=== PATIENT | male | born 1950 | race Caucasian/White ===

== ENCOUNTER 2019-05-07 06:33 | Day surgery (SDC) | payer MEDICARE, OTHER ==
[2019-05-07] MEDS ORDERED: Sugammadex Sodium 200 MG/2 ML VIAL IV ONE (06:34)
[2019-05-07] MEDS ORDERED: Succinylcholine 200 MG/10 ML MDV IV ONE (06:34)
[2019-05-07] MEDS ORDERED: Rocuronium 50 MG/5 ML Vial IV ONE (06:34)
[2019-05-07] MEDS ORDERED: Lactated Ringers 1,000 ML IV ONE (06:34)
[2019-05-07] MEDS ORDERED: Ondansetron 4 MG/2 ML SDV IVPUSH ONE ×2 (06:34)
[2019-05-07] MEDS ORDERED: Labetalol 100 MG/20 ML MDV IV ONE (06:34)
[2019-05-07] MEDS ORDERED: fentaNYL 100 MCG/2 ML SDV IV ONE (06:34)
[2019-05-07] MEDS ORDERED: Ketorolac 30 MG/ML SDV IVPUSH ONE (06:34)
[2019-05-07] MEDS ORDERED: Propofol 200 MG/20 ML SDV IV ONE (06:34)
[2019-05-07] MEDS ORDERED: Sodium Chloride 0.9% 10 ML Syringe FLUSH PRN (06:45)
[2019-05-07] MEDS ORDERED: Lactated Ringers 1,000 ML IV SCH (06:45)
[2019-05-07] MEDS ORDERED: ceFAZolin 2 GM in Premix Bag 1 BAG IV ONE (07:30)
[2019-05-07] MEDS ORDERED: Bupivacaine 0.5% 30 ML SDV INJECT ONE (08:15)
[2019-05-07] MEDS ORDERED: Lidocaine 1% with EPINEPHrine 1:100,000 20 ML MDV INJECT ONE (08:15)
[2019-05-07] MEDS ORDERED: Acetaminophen/HYDROcodone 325-5 MG Tab PO PRN (09:20)
--- NOTE | 2019-05-07 09:20 | PCM.OPNOTE ---
- General Post-Op/Procedure Note Date of Surgery/Procedure: 05/07/19 Operative Procedure(s): bilateral lap inguinal hernia repair Findings: indirect hernia bilaterally right side is a recurrence Pre Op Diagnosis: bilateral inguinal hernia without obstruction or gangrene Post-Op Diagnosis: Same Anesthesia Technique: General ET Tube, Local (5 ml 1 % lido with epi/0.5% buvipicaine) Primary Surgeon: Sha Holt Anesthesia Provider: Hazel Bolanos Pathology: none Complications: None Condition: Good Free Text/Narrative:: see dictation
--- NOTE | 2019-05-07 14:03 | OR ---
DATE OF OPERATION: 05/07/2019 SURGEON: Sha Holt MD PROCEDURE PERFORMED: Bilateral laparoscopic inguinal hernia repair. PREOPERATIVE DIAGNOSIS: Bilateral inguinal hernia with the right being a recurrence. POSTOPERATIVE DIAGNOSIS: Bilateral inguinal hernia with the right being a recurrence. INDICATIONS FOR PROCEDURE: This is a 68-year-old white male, who has had a repair in the past of a right inguinal hernia. He was referred with a left inguinal hernia and, on exam, appeared to have a recurrence on the right side as well. Due to the nature of the findings, he was offered and accepted bilateral repair. INTRAOPERATIVE FINDINGS: A total of 10 mL of 1:1 mixture of 1% lidocaine with epinephrine and 0.5% bupivacaine were used. Bard 3DMax mesh polypropylene preformed meshes were used. Both of these were size medium. The right side was reference #[id number], lot #[id number] with an expiration date of 04/13/2022. The left side again was medium, reference #[id number], lot #[id number], expiration date 03/14/2021. Both of these were size 8.5 x 13.7 cm. DESCRIPTION OF PROCEDURE: After an excellent general anesthetic was administered via endotracheal tube, the patient was prepped and draped in the usual sterile manner. Our local mixture was used to infiltrate the area just below the umbilicus. A 3-cm skin incision was made. Blunt dissection was carried out, exposing the anterior rectus sheath. This area was infiltrated with more local, the sheath was divided in approximately 1 cm length horizontally. The rectus muscle was retracted laterally and balloon dilator was inserted in preperitoneal space down to the level of the symphysis pubis and was inflated. After maximal insufflation, the balloon dilator was removed, and the Quinn trocar was inserted. The preperitoneal space was insufflated to 12 mmHg pressure using carbon dioxide. Two 5 mm ports were then placed along the midline between the symphysis pubis and this trocar. Attention was first turned to the right side, which was the area of the recurrence. Blunt dissection was carried out, exposing the spermatic cord as it entered into the internal ring. Careful blunt dissection was carried out to dissect free the hernia sac, identified the vas deferens, as well as the blood vessels to the testicle. There was a small rent made in the peritoneum, which was closed with clips. Having dissected this area free, our attention was then turned to the left side. More careful dissection again was carried out, reducing a larger hernia on the left side by mobilizing the sac and skeletonizing and exposing the vas deferens and left-sided testicle. Similar fashion was performed on the right. The mesh was then rolled and inserted into preperitoneal space starting on the left side. The mesh was played out. Two permanent tackers were used to tack the mesh to Pancho's ligament on the inside with good coverage of the inguinal canal. The process was repeated on the right side with similarly placed tackers, after covering the floor of the inguinal canal in the preperitoneal aspect. After assuring excellent hemostasis, the gas was released and the trocars were removed. The fascial defect was closed with a [id number] 0 Vicryl, subcu 4- 0 Vicryl was used to close the skin. Steri-Strips were applied. Needle, sponge, and instrument counts were reported as correct. The patient was taken to recovery room in good condition. /[id number] /MODL
== END 2019-05-07 11:24 | disposition home or self-care (01) ==
LOC: FB.SDS 06:33
PROVIDERS: ATTEND Surgery
DX: K40.91 Unilateral inguinal hernia, without obstruction or gangrene, recurrent (principal); K40.90 Unilateral inguinal hernia, without obstruction or gangrene, not specified as recurrent; I10 Essential (primary) hypertension; Z79.01 Long term (current) use of anticoagulants; Z79.82 Long term (current) use of aspirin; Z79.899 Other long term (current) drug therapy
CPT/HCPCS: 00830; 49505; 49520; 94150; A9270; C1713; C1781; J0330; J0690; J1885; J2405; J2704; J3010; J3490; J7120

== ENCOUNTER 2019-05-12 20:37 | Observation (INO) | payer MEDICARE, OTHER ==
[2019-05-12] MEDS ORDERED: HYDROmorphone 2 MG/ML SDV IM ONE (20:54)
--- NOTE | 2019-05-12 20:59 | EDM.PDOC ---
ED HPI GENERAL MEDICAL PROBLEM - General Chief Complaint: Abdominal Pain Stated Complaint: PAIN Time Seen by Provider: 05/12/19 20:50 Source of Information: Reports: Patient, Family, Old Records History Limitations: Reports: No Limitations - History of Present Illness INITIAL COMMENTS - FREE TEXT/NARRATIVE: Grge comes back to [facility] with the develop of abdominal pain over the past 5 hours. He is 5 days post op lap bilateral inguinal hernia repairs with mesh, and was compliant with post op cares including daily Lovenox SC injections and restarting Coumadin today. An injection of Lovenox yesterday into the L abdomen seemed to produce sharp pain, significance unknown. There is discoloration of the anterior abdominal wall from injections and surgery, and some feeling of abdominal distention. His BMs are small and not scyballus. abdpmen Pain Score (Numeric/FACES): 8 - Related Data Allergies Allergy/AdvReac Type Severity Reaction Status Date / Time No Known Allergies Allergy Verified 05/12/19 21:02 Home Meds: Home Meds Albuterol Sulfate [Albuterol Sulfate Hfa] 2 puff IH Q6H PRN 05/06/19 [History] Metoprolol Succinate [Toprol XL] 25 mg PO DAILY 05/06/19 [History] Multivitamin [Multivitamins] 1 each PO DAILY 05/06/19 [History] Warfarin Sodium [Jantoven] 5 mg PO DAILY 05/06/19 [History] atorvaSTATin [Lipitor] 10 mg PO DAILY 05/06/19 [History] Acetaminophen/HYDROcodone [Grubbs 325-5 MG] 1 - 2 tab PO Q6H PRN #30 tab [Rx] Aspirin 81 mg PO DAILY 05/07/19 [History] Past Medical History HEENT History: Reports: Hard of Hearing Other HEENT History: CERUMEN IMPACTION, CONDUCTIVE HEARING LOSS Cardiovascular History: Reports: Bypass, CAD, Hypertension Other Cardiovascular History: NONRHEUMATIC AORTIC VALVE INSUFFICIENCY Other Gastrointestinal History: CHOLESTEATOMA Other Musculoskeletal History: JOINT PAIN, RIGHT HIP PAIN Hematologic History: Reports: Anticoagulation Therapy - Past Surgical History HEENT Surgical History: Reports: Cataract Surgery Other HEENT Surgeries/Procedures: TYMPANOPLASTY Cardiovascular Surgical History: Reports: Coronary Artery Bypass, Valve Replacement Other Cardiovascular Surgeries/Procedures: CARDIAC CATHETERIZATION GI Surgical History: Reports: Colonoscopy, Hernia Repair/Other Musculoskeletal Surgical History: Reports: Arthroscopic Procedure, Hip Replacement Other Musculoskeletal Surgeries/Procedures:: ROTATOR CUFF REPAIR, STERNOTOMY Social & Family History - Caffeine Use Caffeine Use: Reports: Coffee ED ROS GENERAL - Review of Systems Review Of Systems: See Below Constitutional: Reports: No Symptoms HEENT: Reports: No Symptoms Respiratory: Reports: No Symptoms Cardiovascular: Reports: No Symptoms Endocrine: Reports: No Symptoms GI/Abdominal: Reports: Abdominal Pain, Diarrhea (a loose stool earlier today) : Reports: No Symptoms Musculoskeletal: Reports: No Symptoms Skin: Reports: Bruising Neurological: Reports: No Symptoms Psychiatric: Reports: No Symptoms Hematologic/Lymphatic: Reports: No Symptoms Immunologic: Reports: No Symptoms ED EXAM, GI/ABD - Physical Exam Exam: See Below Exam Limited By: No Limitations General Appearance: Alert, WD/WN, Anxious, Mild Distress Eyes: Bilateral: Normal Appearance, EOMI Ears: Normal External Exam Nose: Normal Inspection Throat/Mouth: Normal Inspection, Normal Oropharynx Head: Normocephalic Neck: Normal Inspection, Supple Respiratory/Chest: Lungs Clear, Chest Non-Tender Cardiovascular: Regular Rate, Rhythm GI/Abdominal Exam: Normal Bowel Sounds, No Organomegaly, No Mass, Distended, Tender (L>R anterior abdominal tenderness without guarding or rigidity; wounds look okay) (Male) Exam: Normal Inspection, Normal Prostate Rectal (Males) Exam: Normal Exam, Normal Rectal Tone, Prostate Normal Back Exam: Normal Inspection, Full Range of Motion Extremities: Normal Inspection, Normal Range of Motion Neurological: Alert, Oriented, CN II-XII Intact, Normal Cognition, No Motor/ Sensory Deficits Psychiatric: Normal Affect, Normal Mood Skin Exam: Warm, Dry, Intact, No Rash, Ecchymosis Lymphatic: No Adenopathy Course - Vital Signs Text/Narrative:: Following assessment, I obtained screening labs including CBC, INR, CMP, and UA. The Abd Pelvic CT w contrast noted: large anterior retroperitoneal hematoma without extravasation into the peritoneal cavity; additional hematomas of rectal sheaths. I called surgeon president [employer] for consultation, and he will be admitted to Observation. Last Recorded V/S: Last Vital Signs Temp 36.4 C 05/13/19 03:45 Pulse 68 05/13/19 03:45 Resp 18 05/13/19 03:45 BP 136/74 05/13/19 03:45 Pulse Ox 95 05/13/19 03:45 - Orders/Labs/Meds Orders: Active Orders 24 hr Category Date Time Status Patient Status [ADT] Routine ADT 05/12/19 23:32 Active Ambulate [RC] ASDIRECTED Care 05/12/19 23:32 Active Intake and Output [RC] 06,14,22 Care 05/12/19 23:35 Active Oxygen Therapy [RC] PRN Care 05/12/19 23:32 Active Up With Assistance [RC] ASDIRECTED Care 05/12/19 23:32 Active Abdomen Pelvis w Cont [CT] Stat Exams 05/12/19 21:26 Taken Acetaminophen/HYDROcodone [Grubbs 325-5 MG] Med 05/12/19 23:38 Active 1 - 2 tab PO Q6H PRN Acetaminophen/HYDROcodone [Grubbs 325-5 MG] Med 05/12/19 23:32 Active 1 tab PO Q4H PRN Acetaminophen/HYDROcodone [Grubbs 325-5 MG] Med 05/12/19 23:32 Active 2 tab PO Q4H PRN Albuterol [Ventolin HFA] Med 05/12/19 23:38 Active 0 gm INH Q6H PRN Lactated Ringers [Ringers, Lactated] 1,000 ml Med 05/12/19 23:45 Active IV ASDIRECTED Metoprolol Succinate [Toprol XL] Med 05/13/19 09:00 Active 25 mg PO DAILY Morphine Med 05/12/19 23:32 Active 2 mg IVPUSH Q1H PRN Multivitamins [Tab-A-Anum] Med 05/13/19 09:00 Active 1 tab PO DAILY Ondansetron [Zofran] Med 05/12/19 23:32 Active 4 mg IVPUSH Q6H PRN Sodium Chloride 0.9% [Normal Saline] 1,000 ml Med 05/12/19 23:00 Active IV ASDIRECTED Sodium Chloride 0.9% [Saline Flush] Med 05/12/19 21:19 Active 10 ml FLUSH ASDIRECTED PRN Peripheral IV Insertion Adult [OM.PC] Routine Oth 05/12/19 21:19 Ordered Resuscitation Status Routine Resus Stat 05/12/19 23:32 Ordered Medication Orders Acetaminophen (Tylenol) 650 mg PO Q4H PRN PRN Reason: Headache Last Admin: 05/13/19 06:22 Dose: 650 mg Hydrocodone Bitart/Acetaminophen (Grubbs 325-5 Mg) 1 tab PO Q4H PRN PRN Reason: Pain (mild 1-3) Hydrocodone Bitart/Acetaminophen (Grubbs 325-5 Mg) 2 tab PO Q4H PRN PRN Reason: Pain (moderate 4-6) Hydrocodone Bitart/Acetaminophen (Grubbs 325-5 Mg) 1 - 2 tab PO Q6H PRN PRN Reason: Pain Albuterol (Ventolin Hfa) 0 gm INH Q6H PRN PRN Reason: Cough Sodium Chloride (Normal Saline) 1,000 mls @ 150 mls/hr IV ASDIRECTED AMAYA Lactated Ringer's (Ringers, Lactated) 1,000 mls @ 75 mls/hr IV ASDIRECTED AMAYA Last Admin: 05/13/19 03:19 Dose: 75 mls/hr Metoprolol Succinate (Toprol Xl) 25 mg PO DAILY [facility] Miscellaneous Information (Remove Patch) 1 ea TRDERM Q24H AMAYA Morphine Sulfate (Morphine) 2 mg IVPUSH Q1H PRN PRN Reason: Pain (severe 7-10) Multivitamins/Minerals/Vitamin C (Tab-A-Anum) 1 tab PO DAILY [facility] Ondansetron HCl (Zofran) 4 mg IVPUSH Q6H PRN PRN Reason: Nausea/Vomiting Scopolamine (Transderm-Scop) 1.5 mg TRDERM Q72H PRN PRN Reason: Nausea Last Admin: 05/13/19 00:50 Dose: 1.5 mg Sodium Chloride (Saline Flush) 10 ml FLUSH ASDIRECTED PRN PRN Reason: Keep Vein Open Last Admin: 05/12/19 21:30 Dose: 10 ml Labs: Laboratory Tests 05/12/19 05/12/19 05/12/19 Range/Units 20:50 20:50 20:50 WBC 9.8 (4.5-12.0) X10-3/uL RBC 4.42 (4.30-5.75) x10(6)uL Hgb 13.7 (13.5-17.8) g/dL Hct 40.2 (30.0-51.3) % MCV 90.8 (80-96) fL MCH 31.0 (27.7-33.6) pg MCHC 34.1 (32.2-35.4) g/dL RDW 12.1 (11.5-15.5) % Plt Count 240 (125-369) X10(3)uL MPV 8.3 (7.4-10.4) fL Neut % (Auto) 76.7 (46-82) % Lymph % (Auto) 13.8 (13-37) % [place] % (Auto) 7.0 (4-12) % Eos % (Auto) 2 (1.0-5.0) % Baso % (Auto) 1 (0-2) % Neut # (Auto) 7.5 (1.6-8.3) # Lymph # (Auto) 1.3 (0.6-5.0) # [place] # (Auto) 0.7 (0.0-1.3) # Eos # (Auto) 0.2 (0.0-0.8) # Baso # (Auto) 0.1 (0.0-0.2) # PT 17.9 H (8.7-11.1) INR 1.86 H (0.89-1.13) Sodium 140 (135-145) mmol/L Potassium 4.0 (3.5-5.3) mmol/L Chloride 106 (100-110) mmol/L Carbon Dioxide 27 (21-32) mmol/L BUN 22 H (7-18) mg/dL Creatinine 1.2 (0.70-1.30) mg/dL Est Cr Clr Drug Dosing TNP Estimated GFR (MDRD) > 60 (>60) BUN/Creatinine Ratio 18.3 (9-20) Glucose 109 (80-116) mg/dL Calcium 8.7 (8.6-10.2) mg/dL Total Bilirubin 0.4 (0.1-1.3) mg/dL AST 50 H (5-25) IU/L ALT 104 H (12-36) U/L Alkaline Phosphatase 94 (56-112) IU/L Total Protein 6.8 (6.0-8.0) g/dL Albumin 3.6 (3.2-4.6) g/dL Globulin 3.2 g/dL Albumin/Globulin Ratio 1.1 Meds: Medications Generic Name Dose Route Start Last Admin Trade Name Freq PRN Reason Stop Dose Admin Acetaminophen 650 mg 05/13/19 05:50 05/13/19 06:22 Tylenol PO 650 mg Q4H PRN Administration Headache Hydrocodone Bitart/Acetaminophen 1 tab 05/12/19 23:32 Grubbs 325-5 Mg PO Q4H PRN Pain (mild 1-3) Hydrocodone Bitart/Acetaminophen 2 tab 05/12/19 23:32 Grubbs 325-5 Mg PO Q4H PRN Pain (moderate 4-6) Hydrocodone Bitart/Acetaminophen 1 - 2 tab 05/12/19 23:38 Grubbs 325-5 Mg PO Q6H PRN Pain Albuterol 0 gm 05/12/19 23:38 Ventolin Hfa INH Q6H PRN Cough Sodium Chloride 1,000 mls @ 150 mls/hr 05/12/19 23:00 Normal Saline IV ASDIRECTED AMAYA Lactated Ringer's 1,000 mls @ 75 mls/hr 05/12/19 23:45 05/13/19 03:19 Ringers, Lactated IV 75 mls/hr ASDIRECTED AMAYA Administration Metoprolol Succinate 25 mg 05/13/19 09:00 Toprol Xl PO DAILY AMAYA Miscellaneous Information 1 ea 05/13/19 09:00 Remove Patch TRDERM Q24H AMAYA Morphine Sulfate 2 mg 05/12/19 23:32 Morphine IVPUSH Q1H PRN Pain (severe 7-10) Multivitamins/Minerals/Vitamin C 1 tab 05/13/19 09:00 Tab-A-Anum PO DAILY AMAYA Ondansetron HCl 4 mg 05/12/19 23:32 Zofran IVPUSH Q6H PRN Nausea/Vomiting Scopolamine 1.5 mg 05/13/19 00:29 05/13/19 00:50 Transderm-Scop TRDERM 1.5 mg Q72H PRN Administration Nausea Sodium Chloride 10 ml 05/12/19 21:19 05/12/19 21:30 Saline Flush FLUSH 10 ml ASDIRECTED PRN Administration Keep Vein Open Discontinued Medications Generic Name Dose Route Start Last Admin Trade Name Freq PRN Reason Stop Dose Admin Hydromorphone HCl 2 mg 05/12/19 20:54 05/12/19 21:05 Dilaudid IM 05/12/19 20:55 2 mg ONETIME ONE Administration Iopamidol 100 ml 05/12/19 21:34 05/12/19 22:00 Isovue-370 (76%) IV 05/12/19 21:35 100 ml . DIRECTED ONE Administration Ondansetron HCl 8 mg 05/12/19 21:19 05/12/19 21:30 Zofran IVPUSH 05/12/19 21:20 8 mg ONETIME ONE Administration Departure - Departure Time of Disposition: 23:28 Disposition: Refer to Observation Condition: Fair Clinical Impression: Intra-abdominal hematoma - Discharge Information *PRESCRIPTION DRUG MONITORING PROGRAM REVIEWED*: Not Applicable *COPY OF PRESCRIPTION DRUG MONITORING REPORT IN PATIENT YVONNE: Not Applicable - Problem List & Annotations (1) Intra-abdominal hematoma SNOMED Code(s): 002967403 Code(s): S36.92XA - CONTUSION OF UNSPECIFIED INTRA-ABDOMINAL ORGAN, INIT ENCNTR Status: Acute Current Visit: Yes Annotation/Comment:: Admission per surgery. - Problem List Review Problem List Initiated/Reviewed/Updated: Yes - My Orders Last 24 Hours: My Active Orders 05/12/19 21:19 Sodium Chloride 0.9% [Saline Flush] 10 ml FLUSH ASDIRECTED PRN Peripheral IV Insertion Adult [OM.PC] Routine 05/12/19 21:26 Abdomen Pelvis w Cont [CT] Stat 05/12/19 23:00 Sodium Chloride 0.9% [Normal Saline] 1,000 ml IV ASDIRECTED - Assessment/Plan Last 24 Hours: My Active Orders 05/12/19 21:19 Sodium Chloride 0.9% [Saline Flush] 10 ml FLUSH ASDIRECTED PRN Peripheral IV Insertion Adult [OM.PC] Routine 05/12/19 21:26 Abdomen Pelvis w Cont [CT] Stat 05/12/19 23:00 Sodium Chloride 0.9% [Normal Saline] 1,000 ml IV ASDIRECTED Plan: Follow up with general surgery.
[2019-05-12] MEDS ORDERED: Sodium Chloride 0.9% 10 ML Syringe FLUSH PRN (21:19)
[2019-05-12] MEDS ORDERED: Ondansetron 4 MG/2 ML SDV IVPUSH ONE (21:19)
[2019-05-12] MEDS ORDERED: Iopamidol 755 Mg/ML 100 ML Bottle IV ONE (21:34)
[2019-05-12] MEDS ORDERED: Sodium Chloride 0.9% 1,000 ML IV SCH (23:00)
[2019-05-12] MEDS ORDERED: Morphine 2 MG/ML Syringe IVPUSH PRN (23:32)
[2019-05-12] MEDS ORDERED: Acetaminophen/HYDROcodone 325-5 MG Tab PO PRN ×3 (23:32→23:38)
[2019-05-12] MEDS ORDERED: Ondansetron 4 MG/2 ML SDV IVPUSH PRN (23:32)
[2019-05-12] MEDS ORDERED: Albuterol 8 GM Inhaler INH PRN (23:38)
[2019-05-12] MEDS ORDERED: Lactated Ringers 1,000 ML IV SCH (23:45)
[2019-05-13] MEDS ORDERED: Scopolamine 1.5 MG Transdermal Patch TRDERM PRN (00:29)
--- NOTE | 2019-05-13 02:26 | HP ---
ADMISSION DATE: 05/12/2019 HISTORY OF PRESENT ILLNESS: This 68-year-old male presented to the emergency room this evening with increasing right and left lower abdominal pain and a history of some back pain. His history is that 5 days ago, he underwent bilateral laparoscopic inguinal hernia repairs. He was feeling well until yesterday when he developed some increased lower abdominal pain, and today, the pain continued, even worsening, and was associated with some sensation of being lightheaded and even some nausea. He was seen in the emergency room for these symptoms. The patient did not have any fever or chills. He has not had any drainage from his incisions. He has been able to void satisfactorily. He has had some diarrhea over the last 1 to 2 days. It is significant to note that the patient is chronically anticoagulated because of a heart valve and states that he has been taking Lovenox since the operation and also took a double dose (10 mg) of Coumadin yesterday as well as today. The patient was evaluated with laboratory studies, which were essentially unremarkable. He also underwent a CT scan of the abdomen and pelvis, which was interpreted by the radiologist as demonstrating an extraperitoneal hematoma in the pelvis, approximately 10 x 14 cm in size, with extension into the rectus sheaths bilaterally. There was no indication of intraabdominal extension of the hematoma. PAST MEDICAL HISTORY: In addition to the history of cardiac valve and anticoagulated status includes diagnoses of hypertension and hyperlipidemia. CURRENT MEDICATIONS: Include: 1. Coumadin 5 mg a day. 2. Toprol-XL 25 mg a day. 3. Aspirin daily. 4. Vitamins daily. 5. Lipitor 10 mg daily. 6. Albuterol inhaler p.r.n. OTHER PREVIOUS SURGICAL PROCEDURES: Included shoulder surgery; cataract removal;, colonoscopy; hernia repairs; joint replacements; aortic valve replacement with coronary artery bypass, which occurred in 2016; and right total hip. REVIEW OF SYSTEMS: Unremarkable, except as mentioned above. PHYSICAL EXAMINATION: VITAL SIGNS: Temperature is 97.4, pulse is 81, blood pressure is 139/80, and O2 saturation is 100% on room air. GENERAL: The patient is an alert, somewhat anxious-appearing male. He is in no acute distress, but does occasionally have some episodes of nausea and at least 1 episode of retching during the evaluation. HEAD: Normocephalic. EYES: No scleral icterus. NECK: No cervical masses or cervical swelling. HEART: Regular with audible valve click. LUNGS: Clear. ABDOMEN: Shows lower abdominal distention. There is ecchymosis noted in the lower mid abdomen. No fluctuance or crepitus is identified. There is tenderness to direct palpation in the lower abdomen of a moderate amount. His incisions are healing well without drainage. No inguinal masses or swelling is noted. There is a small amount of genital ecchymosis, but without unusual swelling. EXTREMITIES: Show no edema and no calf tenderness. BACK: There is no CVA tenderness. IMPRESSION: Postoperative extraperitoneal hematoma secondary to anticoagulated status after bilateral hernia repairs. RECOMMENDATIONS: The patient will be admitted to observation care. We will hold anticoagulants and monitor his INR and clinical status. I would anticipate if no significant changes are noted that the hematomas will resolve spontaneously. /[id number] EKTA/RODDY
[2019-05-13] MEDS ORDERED: Acetaminophen 325 MG Tab PO PRN (05:50)
[2019-05-13] MEDS ORDERED: Metoprolol Succinate 25 MG Tab.ER *PTOM PO SCH ×2 (09:00→09:30)
[2019-05-13] MEDS ORDERED: Multivitamin Tab PO SCH (09:00)
[2019-05-13] MEDS ORDERED: Warfarin 5 MG Tab *PTOM PO ONE (10:00)
--- NOTE | 2019-05-13 10:49 | PCM.SURGPN ---
- General Info Date of Service: 05/13/19 Functional Status: Reports: Pain Controlled - Review of Systems Cardiovascular: Reports: No Symptoms Gastrointestinal: Denies: Abdominal Pain - Patient Data Vitals - Most Recent: Last Vital Signs Temp 97.6 F 05/13/19 08:00 Pulse 72 05/13/19 08:00 Resp 20 05/13/19 08:00 BP 122/79 05/13/19 08:00 Pulse Ox 95 05/13/19 08:00 Weight - Most Recent: 79.787 kg I&O - Last 24 Hours: Intake & Output 05/12/19 05/13/19 05/13/19 22:59 06:59 14:59 Intake Total 1022 Output Total 700 Balance 322 Lab Results Last 24 Hrs: Laboratory Results - last 24 hr 05/12/19 05/12/19 05/12/19 Range/Units 20:50 20:50 20:50 WBC 9.8 (4.5-12.0) X10-3/uL RBC 4.42 (4.30-5.75) x10(6)uL Hgb 13.7 (13.5-17.8) g/dL Hct 40.2 (30.0-51.3) % MCV 90.8 (80-96) fL MCH 31.0 (27.7-33.6) pg MCHC 34.1 (32.2-35.4) g/dL RDW 12.1 (11.5-15.5) % Plt Count 240 (125-369) X10(3)uL MPV 8.3 (7.4-10.4) fL Neut % (Auto) 76.7 (46-82) % Lymph % (Auto) 13.8 (13-37) % Izard % (Auto) 7.0 (4-12) % Eos % (Auto) 2 (1.0-5.0) % Baso % (Auto) 1 (0-2) % Neut # (Auto) 7.5 (1.6-8.3) # Lymph # (Auto) 1.3 (0.6-5.0) # Izard # (Auto) 0.7 (0.0-1.3) # Eos # (Auto) 0.2 (0.0-0.8) # Baso # (Auto) 0.1 (0.0-0.2) # PT 17.9 H (8.7-11.1) INR 1.86 H (0.89-1.13) Sodium 140 (135-145) mmol/L Potassium 4.0 (3.5-5.3) mmol/L Chloride 106 (100-110) mmol/L Carbon Dioxide 27 (21-32) mmol/L BUN 22 H (7-18) mg/dL Creatinine 1.2 (0.70-1.30) mg/dL Est Cr Clr Drug Dosing TNP Estimated GFR (MDRD) > 60 (>60) BUN/Creatinine Ratio 18.3 (9-20) Glucose 109 (80-116) mg/dL Calcium 8.7 (8.6-10.2) mg/dL Total Bilirubin 0.4 (0.1-1.3) mg/dL AST 50 H (5-25) IU/L ALT 104 H (12-36) U/L Alkaline Phosphatase 94 (56-112) IU/L Total Protein 6.8 (6.0-8.0) g/dL Albumin 3.6 (3.2-4.6) g/dL Globulin 3.2 g/dL Albumin/Globulin Ratio 1.1 Urine Color (YELLOW) Urine Appearance (CLEAR) Urine pH (5.0-6.5) Ur Specific Hessmer (1.010-1.025) Urine Protein (NEGATIVE) mg/dL Urine Glucose (UA) (NORMAL) mg/dL Urine Ketones (NEGATIVE) mg/dL Urine Occult Blood (NEGATIVE) Urine Nitrite (NEGATIVE) Urine Bilirubin (NEGATIVE) Urine Urobilinogen (NEGATIVE) mg/dL Ur Leukocyte Esterase (NEGATIVE) Urine RBC (0-5) Urine WBC (0-5) Ur Squamous Epith Cells (NS,R,O) Urine Bacteria (NS) Fine Granular Casts (NS) 05/13/19 05/13/19 05/13/19 Range/Units 03:20 06:15 06:15 WBC 10.0 (4.5-12.0) X10-3/uL RBC 3.74 L (4.30-5.75) x10(6)uL Hgb 11.8 L (13.5-17.8) g/dL Hct 34.1 (30.0-51.3) % MCV 91.4 (80-96) fL MCH 31.7 (27.7-33.6) pg MCHC 34.7 (32.2-35.4) g/dL RDW 12.3 (11.5-15.5) % Plt Count 200 (125-369) X10(3)uL MPV 8.5 (7.4-10.4) fL Neut % (Auto) 84.3 H (46-82) % Lymph % (Auto) 7.4 L (13-37) % Izard % (Auto) 7.9 (4-12) % Eos % (Auto) 0 L (1.0-5.0) % Baso % (Auto) 0 (0-2) % Neut # (Auto) 8.5 H (1.6-8.3) # Lymph # (Auto) 0.7 (0.6-5.0) # Izard # (Auto) 0.8 (0.0-1.3) # Eos # (Auto) 0.0 (0.0-0.8) # Baso # (Auto) 0.0 (0.0-0.2) # PT 19.9 H (8.7-11.1) INR 2.06 H (0.89-1.13) Sodium (135-145) mmol/L Potassium (3.5-5.3) mmol/L Chloride (100-110) mmol/L Carbon Dioxide (21-32) mmol/L BUN (7-18) mg/dL Creatinine (0.70-1.30) mg/dL Est Cr Clr Drug Dosing Estimated GFR (MDRD) (>60) BUN/Creatinine Ratio (9-20) Glucose (80-116) mg/dL Calcium (8.6-10.2) mg/dL Total Bilirubin (0.1-1.3) mg/dL AST (5-25) IU/L ALT (12-36) U/L Alkaline Phosphatase (56-112) IU/L Total Protein (6.0-8.0) g/dL Albumin (3.2-4.6) g/dL Globulin g/dL Albumin/Globulin Ratio Urine Color Yellow (YELLOW) Urine Appearance Slightly cloudy (CLEAR) Urine pH 6.0 (5.0-6.5) Ur Specific [place] 1.020 (1.010-1.025) Urine Protein Negative (NEGATIVE) mg/dL Urine Glucose (UA) Normal (NORMAL) mg/dL Urine Ketones Negative (NEGATIVE) mg/dL Urine Occult Blood Negative (NEGATIVE) Urine Nitrite Negative (NEGATIVE) Urine Bilirubin Negative (NEGATIVE) Urine Urobilinogen Normal (NEGATIVE) mg/dL Ur Leukocyte Esterase Negative (NEGATIVE) Urine RBC 0-5 (0-5) Urine WBC 0-5 (0-5) Ur Squamous Epith Cells Occasional (NS,R,O) Urine Bacteria Few H (NS) Fine Granular Casts Rare H (NS) Med Orders - Current: Current Medications Acetaminophen (Tylenol) 650 mg PO Q4H PRN PRN Reason: Headache Last Admin: 05/13/19 06:22 Dose: 650 mg Hydrocodone Bitart/Acetaminophen (Graham 325-5 Mg) 1 tab PO Q4H PRN PRN Reason: Pain (mild 1-3) Hydrocodone Bitart/Acetaminophen (Graham 325-5 Mg) 2 tab PO Q4H PRN PRN Reason: Pain (moderate 4-6) Hydrocodone Bitart/Acetaminophen (Graham 325-5 Mg) 1 - 2 tab PO Q6H PRN PRN Reason: Pain Albuterol (Ventolin Hfa) 0 gm INH Q6H PRN PRN Reason: Cough Sodium Chloride (Normal Saline) 1,000 mls @ 150 mls/hr IV ASDIRECTED [facility] Lactated Ringer's (Ringers, Lactated) 1,000 mls @ 75 mls/hr IV ASDIRECTED [facility] Last Admin: 05/13/19 03:19 Dose: 75 mls/hr Metoprolol Succinate (Toprol Xl) 12.5 mg PO DAILY [facility] Miscellaneous Information (Remove Patch) 1 ea TRDERM Q24H [facility] Morphine Sulfate (Morphine) 2 mg IVPUSH Q1H PRN PRN Reason: Pain (severe 7-10) Multivitamins/Minerals/Vitamin C (Tab-A-Anum) 1 tab PO DAILY [facility] Last Admin: 05/13/19 10:23 Dose: Not Given Ondansetron HCl (Zofran) 4 mg IVPUSH Q6H PRN PRN Reason: Nausea/Vomiting Scopolamine (Transderm-Scop) 1.5 mg TRDERM Q72H PRN PRN Reason: Nausea Last Admin: 05/13/19 00:50 Dose: 1.5 mg Sodium Chloride (Saline Flush) 10 ml FLUSH ASDIRECTED PRN PRN Reason: Keep Vein Open Last Admin: 05/12/19 21:30 Dose: 10 ml Discontinued Medications Hydromorphone HCl (Dilaudid) 2 mg IM ONETIME ONE Stop: 05/12/19 20:55 Last Admin: 05/12/19 21:05 Dose: 2 mg Iopamidol (Isovue-370 (76%)) 100 ml IV . DIRECTED ONE Stop: 05/12/19 21:35 Last Admin: 05/12/19 22:00 Dose: 100 ml Ondansetron HCl (Zofran) 8 mg IVPUSH ONETIME ONE Stop: 05/12/19 21:20 Last Admin: 05/12/19 21:30 Dose: 8 mg Warfarin Sodium (Coumadin) 5 mg PO ONETIME ONE Stop: 05/13/19 10:01 - Exam Wound/Incisions: Healing Well General: Alert, Oriented Lungs: Clear to Auscultation, Normal Respiratory Effort Cardiovascular: Other ( click) GI/Abdominal Exam: Normal Bowel Sounds, Other (some bruising) Skin: Warm, Dry, Intact - Problem List & Annotations (1) Intra-abdominal hematoma SNOMED Code(s): 082108040 Code(s): S36.92XA - CONTUSION OF UNSPECIFIED INTRA-ABDOMINAL ORGAN, INIT ENCNTR Status: Acute Current Visit: Yes Annotation/Comment:: Admission per surgery. Qualifiers: Encounter type: subsequent encounter Qualified Code(s): S36.92XD - Contusion of unspecified intra-abdominal organ, subsequent encounter - Problem List Review Problem List Initiated/Reviewed/Updated: Yes - My Orders Last 24 Hours: Active Orders 24 hr Category Date Time Status Admission Status [Patient Status] [ADT] Routine ADT 05/12/19 23:41 Active Admission Status [Patient Status] [ADT] Routine ADT 05/12/19 23:41 Active Ambulate [RC] ASDIRECTED Care 05/12/19 23:32 Active Intake and Output [RC] 06,14,22 Care 05/12/19 23:35 Active Oxygen Therapy [RC] PRN Care 05/12/19 23:32 Active Up With Assistance [RC] ASDIRECTED Care 05/12/19 23:32 Active Regular Diet [DIET] Diet 05/13/19 Breakfast Active Abdomen Pelvis w Cont [CT] Stat Exams 05/12/19 21:26 Taken Acetaminophen [Tylenol] Med 05/13/19 05:50 Active 650 mg PO Q4H PRN Acetaminophen/HYDROcodone [Graham 325-5 MG] Med 05/12/19 23:38 Active 1 - 2 tab PO Q6H PRN Acetaminophen/HYDROcodone [Graham 325-5 MG] Med 05/12/19 23:32 Active 1 tab PO Q4H PRN Acetaminophen/HYDROcodone [Graham 325-5 MG] Med 05/12/19 23:32 Active 2 tab PO Q4H PRN Albuterol [Ventolin HFA] Med 05/12/19 23:38 Active 0 gm INH Q6H PRN Lactated Ringers [Ringers, Lactated] 1,000 ml Med 05/12/19 23:45 Active IV ASDIRECTED Metoprolol Succinate [Toprol XL] Med 05/13/19 09:30 Active 12.5 mg PO DAILY Morphine Med 05/12/19 23:32 Active 2 mg IVPUSH Q1H PRN Multivitamins [Tab-A-Anum] Med 05/13/19 09:00 Active 1 tab PO DAILY Ondansetron [Zofran] Med 05/12/19 23:32 Active 4 mg IVPUSH Q6H PRN Remove Patch Med 05/13/19 09:00 Active 1 ea TRDERM Q24H Scopolamine [Transderm-Scop] Med 05/13/19 00:29 Active 1.5 mg TRDERM Q72H PRN Sodium Chloride 0.9% [Normal Saline] 1,000 ml Med 05/12/19 23:00 Active IV ASDIRECTED Sodium Chloride 0.9% [Saline Flush] Med 05/12/19 21:19 Active 10 ml FLUSH ASDIRECTED PRN Peripheral IV Insertion Adult [OM.PC] Routine Oth 05/12/19 21:19 Ordered Resuscitation Status Routine Resus Stat 05/12/19 23:32 Ordered Medication Orders Acetaminophen (Tylenol) 650 mg PO Q4H PRN PRN Reason: Headache Last Admin: 05/13/19 06:22 Dose: 650 mg Hydrocodone Bitart/Acetaminophen (Graham 325-5 Mg) 1 tab PO Q4H PRN PRN Reason: Pain (mild 1-3) Hydrocodone Bitart/Acetaminophen (Graham 325-5 Mg) 2 tab PO Q4H PRN PRN Reason: Pain (moderate 4-6) Hydrocodone Bitart/Acetaminophen (Graham 325-5 Mg) 1 - 2 tab PO Q6H PRN PRN Reason: Pain Albuterol (Ventolin Hfa) 0 gm INH Q6H PRN PRN Reason: Cough Sodium Chloride (Normal Saline) 1,000 mls @ 150 mls/hr IV ASDIRECTED [facility] Lactated Ringer's (Ringers, Lactated) 1,000 mls @ 75 mls/hr IV ASDIRECTED [facility] Last Admin: 05/13/19 03:19 Dose: 75 mls/hr Metoprolol Succinate (Toprol Xl) 12.5 mg PO DAILY [facility] Miscellaneous Information (Remove Patch) 1 ea TRDERM Q24H [facility] Morphine Sulfate (Morphine) 2 mg IVPUSH Q1H PRN PRN Reason: Pain (severe 7-10) Multivitamins/Minerals/Vitamin C (Tab-A-Anum) 1 tab PO DAILY [facility] Last Admin: 05/13/19 10:23 Dose: Ondansetron HCl (Zofran) 4 mg IVPUSH Q6H PRN PRN Reason: Nausea/Vomiting Scopolamine (Transderm-Scop) 1.5 mg TRDERM Q72H PRN PRN Reason: Nausea Last Admin: 05/13/19 00:50 Dose: 1.5 mg Sodium Chloride (Saline Flush) 10 ml FLUSH ASDIRECTED PRN PRN Reason: Keep Vein Open Last Admin: 05/12/19 21:30 Dose: 10 ml - Assessment Assessment (Free Text/Narrative):: appears ready for discharge - Plan Plan (Free Text/Narrative):: meal anticipate discharge
== END 2019-05-13 12:15 | disposition home or self-care (01) ==
LOC: FB.ED 20:37 → FB.MS 23:43
PROVIDERS: ADMIT Surgery; ATTEND Surgery
DX: K91.870 Postprocedural hematoma of a digestive system organ or structure following a digestive system procedure (principal); I10 Essential (primary) hypertension; E78.5 Hyperlipidemia, unspecified; I25.10 Atherosclerotic heart disease of native coronary artery without angina pectoris; H90.2 Conductive hearing loss, unspecified; Z79.01 Long term (current) use of anticoagulants; Z79.82 Long term (current) use of aspirin; Z79.899 Other long term (current) drug therapy; Z95.1 Presence of aortocoronary bypass graft; Z95.2 Presence of prosthetic heart valve; Z98.890 Other specified postprocedural states
CPT/HCPCS: 36415; 74177; 80053; 81001; 85025; 85610; 96361; 96372; 96374; 99285-25; A9270-GY; G0378; J1170; J2405; J7120; Q9967